=== PATIENT | male | born 1985 | race Caucasian/White ===

== ENCOUNTER 2020-12-26 19:23 | Emergency (ER) | payer MEDICAID ==
[~2020-12-26] VITALS: Ht 180.3 cm; Wt 87.5 kg
--- NOTE | 2020-12-26 19:27 | NUR ---
PT BIBSELF C/O SI, WANTING TO "CUT WRIST" AND SEEKING VOL PSYCH ADMISSION.PT AAOX4 BREATHING EVENLY AND UNLABORED. PT PLACED IN GOWN, BELONGINGS LOCKED IN LOCKER. PT ATTACHED TO MONITOR AND POX WITH SITTER. WILL CONTINUE TO MONITOR.
[2020-12-26 19:51] LABS: BASOPHILS # (AUTO) 0.1 K/uL (0.0-0.2); BASOPHILS % (AUTO) 1.1 % (0.0-2.0); EOSINOPHILS % (AUTO) 3.9 % (0.0-6.0); HEMATOCRIT 45 % (39-51); HEMOGLOBIN 15.4 g/dL (13.5-17.5); LYMPHOCYTES # (AUTO) 2.1 K/uL (0.8-4.8); LYMPHOCYTES % (AUTO) 27.5 % (20.0-44.0); MEAN CORPUSCULAR HGB CONC 34 g/dl (31.0-36.0); MEAN CORPUSCULAR VOLUME 85 fL (80-96); MONOCYTES # (AUTO) 0.7 K/uL (0.1-1.30); MONOCYTES % (AUTO) 8.7 % (2.0-12.0); NEUTROPHILS # (AUTO) 4.4 K/uL (1.8-8.9); NEUTROPHILS % (AUTO) 58.8 % (43.0-81.0); PLATELET COUNT (AUTO) 198 K/uL (150-450); RED BLOOD CELL COUNT(AUTO) 5.36 MIL/uL (4.5-6.0); WHITE BLOOD COUNT (AUTO) 7.5 K/uL (4.3-11.0)
[2020-12-26 19:58] LABS: BILIRUBIN,URINE Negative (NEGATIVE); LEUKOCYTE ESTERASE ,URINE Negative (NEGATIVE); NITRITE, URINE Negative (NEGATIVE); PH,URINE 5.5 (5.0-8.0); PROTEIN,URINE Negative (NEGATIVE); UGLUCOSE Negative (NEGATIVE); UROBILINOGEN,URINE 0.2 EU/dL (0.2)
[2020-12-26 20:04] LABS: COLOR,URINE DARK YELLOW (YELLOW)
[2020-12-26 20:04] LABS: ALANINE AMINOTRANSFERASE 266 U/L (12-78); ALKALINE PHOSPHATASE 132 U/L (46-116); ASPARTATE AMINOTRANSFERASE 98 U/L (15-37); BILIRUBIN,DIRECT 0.1 mg/dL (0.0-0.2); BILIRUBIN,TOTAL 0.6 mg/dL (0.2-1.0); CALCIUM, SERUM 8.9 mg/dL (8.5-10.1); CARBON DIOXIDE 25 mmol/L (21-32); CHLORIDE 103 mmol/L (98-107); CREATININE 1.1 mg/dL (0.6-1.3); GLUCOSE 99 mg/dL (74-106); POTASSIUM 4.1 mmol/L (3.5-5.1); SODIUM SERUM 138 mmol/L (136-145); UREA NITROGEN, BLOOD 16 mg/dL (7-18)
[2020-12-26 20:09] LABS: ACETAMINOPHEN < 2 ug/ml (10-30); ALCOHOL, BLOOD < 3 mg/dL (0-0)
--- NOTE | 2020-12-26 21:27 | NUR ---
FACE SHEET AND CLINICALS WERE FAXED TO [facility]
--- NOTE | 2020-12-26 23:25 | NUR ---
CALLED ART AT [facility]TA[facility] FOR UPDATE. HE'LL CALL ME BACK WITH UPDATE
--- NOTE | 2020-12-27 00:22 | NUR ---
PT RESTING COMFORTABLY WITH EYES CLOSED. EASILY AROUSABLE
[2020-12-27 01:30] VITALS: BP 110/74
--- NOTE | 2020-12-27 02:12 | NUR ---
per [facility] , [facility] by Dr. Vides. # for report: [phone]
--- NOTE | 2020-12-27 02:15 | NUR ---
[facility] TRANSPORTATION ARRANGED FOR 90 MIN
--- NOTE | 2020-12-27 03:04 | NUR ---
gave report to kevin mcgill for [facility]
--- NOTE | 2020-12-27 03:04 | NUR ---
gave report to ems for [facility]
== END 2020-12-27 03:17 ==
LOC: ER 19:29
DX: R45.851 Suicidal ideations (principal); F31.9 Bipolar disorder, unspecified; R74.01 Elevation of levels of liver transaminase levels; Z20.822 Contact with and (suspected) exposure to COVID-19
CPT/HCPCS: 36415; 80048; 80076; 80143; 80307; 80320; 81003; 83690; 85025; 87426; 99285; C9803; G0480

== ENCOUNTER 2021-01-01 22:50 | Emergency (ER) | payer MEDICAID ==
[~2021-01-01] VITALS: Ht 180.3 cm; Wt 87.1 kg
[2021-01-02 00:12] LABS: BASOPHILS # (AUTO) 0.1 K/uL (0.0-0.2); BASOPHILS % (AUTO) 0.9 % (0.0-2.0); EOSINOPHILS % (AUTO) 3.3 % (0.0-6.0); HEMATOCRIT 43 % (39-51); HEMOGLOBIN 14.2 g/dL (13.5-17.5); LYMPHOCYTES # (AUTO) 2.2 K/uL (0.8-4.8); LYMPHOCYTES % (AUTO) 27.6 % (20.0-44.0); MEAN CORPUSCULAR HGB CONC 33 g/dl (31.0-36.0); MEAN CORPUSCULAR VOLUME 85 fL (80-96); MONOCYTES # (AUTO) 0.7 K/uL (0.1-1.30); MONOCYTES % (AUTO) 8.3 % (2.0-12.0); NEUTROPHILS # (AUTO) 4.9 K/uL (1.8-8.9); NEUTROPHILS % (AUTO) 59.9 % (43.0-81.0); PLATELET COUNT (AUTO) 186 K/uL (150-450); WHITE BLOOD COUNT (AUTO) 8.1 K/uL (4.3-11.0)
[2021-01-02 00:21] LABS: CALCIUM, SERUM 8.4 mg/dL (8.5-10.1); CARBON DIOXIDE 28 mmol/L (21-32); CHLORIDE 103 mmol/L (98-107); CREATININE 1.1 mg/dL (0.6-1.3); GLUCOSE 121 mg/dL (74-106); POTASSIUM 3.9 mmol/L (3.5-5.1); SODIUM SERUM 137 mmol/L (136-145); UREA NITROGEN, BLOOD 18 mg/dL (7-18)
[2021-01-02 00:28] LABS: ALANINE AMINOTRANSFERASE 105 U/L (12-78); ALBUMIN 3.6 g/dL (3.4-5.0); ALKALINE PHOSPHATASE 110 U/L (46-116); ASPARTATE AMINOTRANSFERASE 19 U/L (15-37); BILIRUBIN,DIRECT 0.1 mg/dL (0.0-0.2); BILIRUBIN,TOTAL 0.4 mg/dL (0.2-1.0); TOTAL PROTEIN, SERUM 7.1 g/dL (6.4-8.2)
[2021-01-02 00:29] LABS: ACETAMINOPHEN 0 ug/ml (10-30); ALCOHOL, BLOOD < 3 mg/dL (0-0)
[2021-01-02 00:41] LABS: BILIRUBIN,URINE Negative (NEGATIVE); COLOR,URINE YELLOW (YELLOW); LEUKOCYTE ESTERASE ,URINE Negative (NEGATIVE); NITRITE, URINE Negative (NEGATIVE); PH,URINE 5.5 (5.0-8.0); PROTEIN,URINE Negative (NEGATIVE); UGLUCOSE Negative (NEGATIVE); UROBILINOGEN,URINE 0.2 EU/dL (0.2)
--- NOTE | 2021-01-02 01:35 | NUR ---
FACESHEET AND CLINICALS FA[facility]ED TO [facility].
--- NOTE | 2021-01-02 02:16 | NUR ---
PATIENT IS SLEEPING. EASILTARUSABLE THROUGH VERBAL STIMULI. CONNECTED TO THE MONITOR. SITTER AT THE BEDSIDE. SIDE RAILS ARE UP FOR SAFETY. SITTER IS AT BEDSIDE.
--- NOTE | 2021-01-02 07:53 | NUR ---
PATIENT AWAKE, STILL C/O HEARING VOICES, PENDING ACCEPTANCE FROM A [facility]ATRIC HOS[facility] FOR VOLUNTARY ADMISSION.
--- NOTE | 2021-01-02 08:05 | NUR ---
BREAKFAST TRAY PROVIDED
--- NOTE | 2021-01-02 10:00 | NUR ---
PT STATED HE IS NOT SUICIDAL AND WANTS TO BE DISCHARGED. MD AWARE.
--- NOTE | 2021-01-02 10:06 | NUR ---
Patient given written and verbal discharge instructions. Patient verbalizes understanding of instructions. Patient is ambulatory with steady gait. Refuses offer of correction placement. Patient given list of available shelters in surrounding area.
[2021-01-02 10:08] VITALS: BP 127/72
== END 2021-01-02 10:08 | disposition home or self-care (01) ==
LOC: ER 22:53
DX: R45.851 Suicidal ideations (principal); Z20.822 Contact with and (suspected) exposure to COVID-19; F31.9 Bipolar disorder, unspecified
CPT/HCPCS: 36415; 80048; 80076; 80143; 80307; 80320; 81003; 85025; 87426; 99285; A6403; C9803; G0480

== ENCOUNTER 2021-01-03 00:10 | Emergency (ER) | payer MEDICAID, OTHER ==
[~2021-01-03] VITALS: Ht 177.8 cm; Wt 85.3 kg
--- NOTE | 2021-01-03 01:36 | NUR ---
BIBSEHILARY C/O SI WITH PLAN TO CUT WRIST. REQUESTING [facility]OL[facility] ADMISSION TO [facility]. OSWALDO RODNEY AT BEDSIDE FOR EVAL. AWAITING ORDERS.
[2021-01-03 01:39] LABS: BASOPHILS # (AUTO) 0.1 K/uL (0.0-0.2); BASOPHILS % (AUTO) 0.9 % (0.0-2.0); EOSINOPHILS % (AUTO) 4.3 % (0.0-6.0); HEMATOCRIT 45 % (39-51); HEMOGLOBIN 14.9 g/dL (13.5-17.5); LYMPHOCYTES # (AUTO) 2.6 K/uL (0.8-4.8); LYMPHOCYTES % (AUTO) 34.8 % (20.0-44.0); MEAN CORPUSCULAR HGB CONC 33 g/dl (31.0-36.0); MEAN CORPUSCULAR VOLUME 86 fL (80-96); MONOCYTES # (AUTO) 0.6 K/uL (0.1-1.30); MONOCYTES % (AUTO) 8.4 % (2.0-12.0); NEUTROPHILS # (AUTO) 3.8 K/uL (1.8-8.9); NEUTROPHILS % (AUTO) 51.6 % (43.0-81.0); PLATELET COUNT (AUTO) 201 K/uL (150-450); RED BLOOD CELL COUNT(AUTO) 5.23 MIL/uL (4.5-6.0); WHITE BLOOD COUNT (AUTO) 7.5 K/uL (4.3-11.0)
[2021-01-03 01:39] LABS: BILIRUBIN,URINE Negative (NEGATIVE); COLOR,URINE YELLOW (YELLOW); LEUKOCYTE ESTERASE ,URINE Negative (NEGATIVE); NITRITE, URINE Negative (NEGATIVE); PH,URINE 5.5 (5.0-8.0); PROTEIN,URINE Negative (NEGATIVE); UGLUCOSE Negative (NEGATIVE); UROBILINOGEN,URINE 0.2 EU/dL (0.2)
[2021-01-03 01:47] LABS: CALCIUM, SERUM 8.8 mg/dL (8.5-10.1); CARBON DIOXIDE 26 mmol/L (21-32); CHLORIDE 102 mmol/L (98-107); GLUCOSE 99 mg/dL (74-106); POTASSIUM 4.1 mmol/L (3.5-5.1); SODIUM SERUM 135 mmol/L (136-145); UREA NITROGEN, BLOOD 15 mg/dL (7-18)
[2021-01-03 02:02] LABS: ALANINE AMINOTRANSFERASE 94 U/L (12-78); ALKALINE PHOSPHATASE 114 U/L (46-116); ASPARTATE AMINOTRANSFERASE 22 U/L (15-37); BILIRUBIN,DIRECT 0.1 mg/dL (0.0-0.2); BILIRUBIN,TOTAL 0.6 mg/dL (0.2-1.0); TOTAL PROTEIN, SERUM 7.8 g/dL (6.4-8.2)
[2021-01-03 02:07] LABS: ACETAMINOPHEN < 0 ug/ml (10-30); ALCOHOL, BLOOD < 0 mg/dL (0-0)
--- NOTE | 2021-01-03 03:51 | NUR ---
FACESHEET AND CLINICALS FA[facility]ED TO [facility].
--- NOTE | 2021-01-03 07:22 | NUR ---
FOLLOWED UP WITH [facility] RE: ACCEPTANCE, CLINICALS STILL BEING REVIEWED.
--- NOTE | 2021-01-03 07:30 | NUR ---
The patient does not want to have vital signs to be checked at this time.
--- NOTE | 2021-01-03 08:13 | NUR ---
The patient sleeping in bed. Responsive to verbal stimuli. Will continue to monitor the patient.
--- NOTE | 2021-01-03 08:49 | NUR ---
The patient is awake, alert and oriented x4. Denies pain. In room air and denies SOB. Respiration regular and unlabored.
--- NOTE | 2021-01-03 08:50 | NUR ---
The patient is having breakfast at this time.
--- NOTE | 2021-01-03 09:16 | NUR ---
PT ACCEPTED TO [facility] UNDER DR. GUY & KEN CALL [phone] FOR REPORT.
--- NOTE | 2021-01-03 09:31 | NUR ---
TRANSPORT CALLED [facility] HAVE AN ETA OF 60 MINS. PER KEATON
--- NOTE | 2021-01-03 09:57 | NUR ---
PATIENT REFUSES TO GO TO [facility], INFORMED DR. TONEY AND RYDER CELLULAR EQUIPMENT REPAIRER.
--- NOTE | 2021-01-03 10:00 | NUR ---
PT SEEN AND CONSULTED BY INTELLIGENCE OFFICER BASIC RYDER. PATIENT DENIES SI/HI AT THIS TIME. HOMELESS RESOURCES PROVIDED.
--- NOTE | 2021-01-03 10:10 | NUR ---
"Drywall Stripper Helper consult: tax services specialist consult requested for suicidal ideation with a plan and homelessness. Patient is a 35-year-old, male. SW met with the patient at his bedside in the emergency department. Patient was alert and oriented x4. Patient presented anxious and appeared well-groomed. Patient asked if he was discharged. Per chart, patient was brought in by self on 01/03/21 with complaints of suicidal ideation with a plan to cut his wrists. Per ED public health staff nurse, patient requested voluntary inpatient psychiatric hospitalization. Patient has been accepted to [facility] ([address] [place] [id number]; ). Patient stated that he is currently staying with friends at this time due to homelessness for the last six months. SW asked the patient if he currently has a source of income and patient stated that he has no income at this time but has support from his friends. SW asked the patient if he has a history of substance use and patient reported no recent substance use but stated that he used to drink alcohol a few times a week. Patient denied history of mental illness. SW asked the patient if he is currently experiencing suicidal or homicidal ideation and patient denied suicidal ideation. Patient denied homicidal ideation. Patient refused to go to [facility] for inpatient psychiatric hospitalization and stated, I dont want to go anymore, Im okay now. Patient stated that he was experiencing suicidal ideation earlier today. SW discussed a safety plan with the patient and asked him if he knew where to go if he was experiencing suicidal ideation and patient stated, yes Ill come to a hospital. EMELINA provided patient with information for [facility] [address] [place] [address]; ). SW asked the patient if had access to social support and patient stated that his friends provide him with support. EMELINA offered the patient homeless and outpatient mental health resources. Patient accepted the resources and thanked EMELINA. Patient signed the homeless waiver and EMELINA filed the waiver in the patients chart. EMELINA discussed discharge plans with the patient and patient stated that he will return to his prior living arrangement with friends and will use public transportation. PLAN: Patient stated that he will return to his prior living arrangement at the time of discharge. No further SS intervention at this time, however, SW will remain available as needed. RESOURCES: Year-round shelters: [place] [address] [place] [address] ; [facility] [place] [address] [place] [address]; [facility] [id number] [facility] [address] [address] 4 | [facility] Recreation [place] Provider: First to Serve Address: [address], [address] # of Beds: 48 Population Served: [facility] Provider: First to Serve Address: [address] [facility], [address] # of Beds: 73 Population Served: [facility] 6 | [facility] Provider: [facility] at Last Address: [address] [facility], [address] # of Beds: 63 Population Served: [facility] 3 | [facility] Provider: [facility] [place] Address: [address] [place], [place] [id number] # of Beds: 75 Population Served: [facility] 8 | [facility] Provider: [facility] [place] Address: [address] [facility] [address] # of Beds: 80 Population Served: [facility] 1 | [facility] Provider: [facility] [place] Address: [address] [address], [address] # of Beds: 85 Population Served: [facility] 2 | [facility] Provider: Radha snowden [facility] Address: Confidential (please call for location) # of Beds: 52 Population Served: [facility] 4 | [facility] Provider: Lia [facility] Address: [address] [facility], [address] # of Beds: 49 Population Served: [facility] Provider: First To Serve Address: [address] [facility], [address] # of Beds: 27 Population Served: [employer]: [facility]: [address] [place] ; [facility] [address] [facility] ; [facility] [address] [place] . Food Resources: [place] [facility]- [address] [place]; Meet Each Need with [facility] ([facility]) [address] [facility]; [facility] [address] [facility]; [facility] [address] [facility]. Mental Health resources provided: [facility] [address] [place], [place] [id number] ; [facility] Mental Health [employer] [address] [facility] [address], [place], [place] [id number] ; [facility] [address] [facility] [place] [address] ; [facility] [address] [place], [place] [phone] Healthcare Clinics: [facility] [address] [facility], [address] [place]. [place] ; [facility] [address] [facility] [address] [place] [address]; [facility] [[email or web address]] [address] [facility]. [place] [phone] Counseling--Outpatient [facility] [address] [facility], [place] [address] (Specializes in in-depth psychotherapy for emotional distress: anxiety, depression, interpersonal conflicts, life transitions, childhood abuse) PSYCHIATRIC OUTPATIENT SERVICES [facility] Partial Hospitalization and Intensive Outpatient Program (Managed Care and [place] Only) [address] [facility]. [facility] [id number] [facility] Partial Hospitalization and Outpatient Program [address] [place] [address] [facility] Partial Hospitalization and Outpatient Program [address] [place], [place] [id number] MINERVA JUAREZ [facility] [address] [place] [address] [facility] Partial Hospitalization and Outpatient Program [address] [place], [place] [phone] "
[2021-01-03 10:26] VITALS: BP 108/71
--- NOTE | 2021-01-03 10:26 | NUR ---
Patient given written and verbal discharge instructions. Patient verbalizes understanding of instructions. Patient is ambulatory with steady gait. Refuses offer of [facility]p placement. Patient given list of available shelters in surrounding area.
== END 2021-01-03 10:26 | disposition home or self-care (01) ==
LOC: ER 00:10
DX: R45.851 Suicidal ideations (principal); F31.9 Bipolar disorder, unspecified; F17.200 Nicotine dependence, unspecified, uncomplicated; Z20.822 Contact with and (suspected) exposure to COVID-19
CPT/HCPCS: 36415; 80048; 80076; 80143; 80307; 80320; 81003; 85025; 87426; 99285; C9803; G0480

== ENCOUNTER 2021-01-14 20:12 | Emergency (ER) | payer OTHER ==
[~2021-01-14] VITALS: Ht 180.3 cm; Wt 87.5 kg
--- NOTE | 2021-01-14 20:15 | NUR ---
BIB SELF C/O SI WITH PLAN TO CUT WRIST. DENIES HI. REQUESTING VOLUNTARY ADMISSION TO [facility]. PT AAOX4 NO ACUTE DISTRESS NOTED, RESP EVEN AND UNLABORED. PT CALM AND COOPERATIVE AT THIS TIME.
--- NOTE | 2021-01-14 20:28 | NUR ---
BLOOD DRAWN BY HEAD PACKAGER.
[2021-01-14 20:33] LABS: BASOPHILS # (AUTO) 0.1 K/uL (0.0-0.2); BASOPHILS % (AUTO) 0.8 % (0.0-2.0); EOSINOPHILS % (AUTO) 3.2 % (0.0-6.0); HEMATOCRIT 44 % (39-51); HEMOGLOBIN 14.9 g/dL (13.5-17.5); LYMPHOCYTES # (AUTO) 1.9 K/uL (0.8-4.8); LYMPHOCYTES % (AUTO) 27.1 % (20.0-44.0); MEAN CORPUSCULAR HGB CONC 34 g/dl (31.0-36.0); MEAN CORPUSCULAR VOLUME 85 fL (80-96); MONOCYTES # (AUTO) 0.6 K/uL (0.1-1.30); MONOCYTES % (AUTO) 8.3 % (2.0-12.0); NEUTROPHILS # (AUTO) 4.3 K/uL (1.8-8.9); NEUTROPHILS % (AUTO) 60.6 % (43.0-81.0); PLATELET COUNT (AUTO) 208 K/uL (150-450); RED BLOOD CELL COUNT(AUTO) 5.16 MIL/uL (4.5-6.0); WHITE BLOOD COUNT (AUTO) 7.1 K/uL (4.3-11.0)
[2021-01-14 20:43] LABS: BILIRUBIN,URINE Negative (NEGATIVE); COLOR,URINE DARK YELLOW (YELLOW); LEUKOCYTE ESTERASE ,URINE Negative (NEGATIVE); NITRITE, URINE Negative (NEGATIVE); PH,URINE 5.5 (5.0-8.0); PROTEIN,URINE Negative (NEGATIVE); UGLUCOSE Negative (NEGATIVE); UROBILINOGEN,URINE 0.2 EU/dL (0.2)
[2021-01-14 20:48] LABS: CALCIUM, SERUM 8.5 mg/dL (8.5-10.1); CARBON DIOXIDE 27 mmol/L (21-32); CHLORIDE 103 mmol/L (98-107); CREATININE 1.1 mg/dL (0.6-1.3); GLUCOSE 140 mg/dL (74-106); POTASSIUM 3.8 mmol/L (3.5-5.1); SODIUM SERUM 139 mmol/L (136-145); UREA NITROGEN, BLOOD 16 mg/dL (7-18)
[2021-01-14 20:53] LABS: ALANINE AMINOTRANSFERASE 94 U/L (12-78); ALBUMIN 3.8 g/dL (3.4-5.0); ALCOHOL, BLOOD < 3 mg/dL (0-0); ALKALINE PHOSPHATASE 114 U/L (46-116); ASPARTATE AMINOTRANSFERASE 36 U/L (15-37); BILIRUBIN,DIRECT 0.1 mg/dL (0.0-0.2); BILIRUBIN,TOTAL 0.6 mg/dL (0.2-1.0); TOTAL PROTEIN, SERUM 7.6 g/dL (6.4-8.2)
[2021-01-14 20:55] LABS: ACETAMINOPHEN < 2 ug/ml (10-30)
--- NOTE | 2021-01-14 21:15 | NUR ---
FACESHEET AND CLINICAL FAXED TO [facility] FOR VOLUNTARY PSYCH ADMISSION.
--- NOTE | 2021-01-14 22:58 | NUR ---
PT GOT ACCEPTED AT [facility] BY DR BANG
--- NOTE | 2021-01-14 23:08 | NUR ---
TRANSPORT CALLED ([facility]) ETA 45MIN.
--- NOTE | 2021-01-14 23:29 | NUR ---
REPORT GIVEN TO JAN AT [facility]. PT IS GOING TO [facility]
[2021-01-14 23:32] VITALS: BP 132/75
--- NOTE | 2021-01-14 23:32 | NUR ---
AYANNA AT [facility] REPORT GIADAMN TO EMT.
== END 2021-01-14 23:42 ==
LOC: ER 20:12
DX: R45.851 Suicidal ideations (principal); Z82.49 Family history of ischemic heart disease and other diseases of the circulatory system; F15.10 Other stimulant abuse, uncomplicated; R03.0 Elevated blood-pressure reading, without diagnosis of hypertension; F20.9 Schizophrenia, unspecified; F31.9 Bipolar disorder, unspecified; Z59.0 Homelessness; Z20.822 Contact with and (suspected) exposure to COVID-19
CPT/HCPCS: 36415; 80048; 80076; 80143; 80307; 80320; 81003; 85025; 87426; 99285; C9803; G0480

== ENCOUNTER 2021-03-04 17:47 | Emergency (ER) | payer OTHER ==
[~2021-03-04] VITALS: Ht 180.3 cm; Wt 87.5 kg
--- NOTE | 2021-03-04 18:02 | NUR ---
The patient bibs for having SI "i want to cut my wrist", want's voluntary admission to [facility]. Denies pain. In room air and denies SOB. Respiration regular and unlabored. Safety meausres taken. Will continue to monitor the patient.
[2021-03-04 18:33] LABS: BASOPHILS # (AUTO) 0.1 K/uL (0.0-0.2); BASOPHILS % (AUTO) 0.8 % (0.0-2.0); EOSINOPHILS % (AUTO) 1.5 % (0.0-6.0); HEMATOCRIT 48 % (39-51); HEMOGLOBIN 15.8 g/dL (13.5-17.5); LYMPHOCYTES # (AUTO) 2.2 K/uL (0.8-4.8); LYMPHOCYTES % (AUTO) 26.3 % (20.0-44.0); MEAN CORPUSCULAR HGB CONC 33 g/dl (31.0-36.0); MEAN CORPUSCULAR VOLUME 84 fL (80-96); MONOCYTES # (AUTO) 0.5 K/uL (0.1-1.30); MONOCYTES % (AUTO) 6.2 % (2.0-12.0); NEUTROPHILS # (AUTO) 5.5 K/uL (1.8-8.9); NEUTROPHILS % (AUTO) 65.2 % (43.0-81.0); PLATELET COUNT (AUTO) 227 K/uL (150-450); RED BLOOD CELL COUNT(AUTO) 5.67 MIL/uL (4.5-6.0); WHITE BLOOD COUNT (AUTO) 8.4 K/uL (4.3-11.0)
[2021-03-04 18:36] LABS: ALANINE AMINOTRANSFERASE 39 U/L (12-78); ALBUMIN 4.4 g/dL (3.4-5.0); ALKALINE PHOSPHATASE 108 U/L (46-116); ASPARTATE AMINOTRANSFERASE 19 U/L (15-37); BILIRUBIN,DIRECT 0.2 mg/dL (0.0-0.2); BILIRUBIN,TOTAL 0.8 mg/dL (0.2-1.0); CALCIUM, SERUM 9.1 mg/dL (8.5-10.1); CARBON DIOXIDE 23 mmol/L (21-32); CHLORIDE 102 mmol/L (98-107); CREATININE 1.1 mg/dL (0.6-1.3); GLUCOSE 113 mg/dL (74-106); POTASSIUM 3.9 mmol/L (3.5-5.1); SODIUM SERUM 138 mmol/L (136-145); TOTAL PROTEIN, SERUM 8.3 g/dL (6.4-8.2); UREA NITROGEN, BLOOD 12 mg/dL (7-18)
[2021-03-04 18:39] LABS: ACETAMINOPHEN < 2 ug/ml (10-30); ALCOHOL, BLOOD < 3 mg/dL (0-0)
--- NOTE | 2021-03-04 18:56 | NUR ---
COVID SWAB DONE AND SENT TO THE LAB
--- NOTE | 2021-03-04 19:19 | NUR ---
urine sent to lab
[2021-03-04 21:54] LABS: BILIRUBIN,URINE NEGATIVE (NEGATIVE); COLOR,URINE YELLOW (YELLOW); LEUKOCYTE ESTERASE ,URINE NEGATIVE (NEGATIVE); NITRITE, URINE NEGATIVE (NEGATIVE); PROTEIN,URINE NEGATIVE (NEGATIVE); UGLUCOSE NEGATIVE (NEGATIVE); UROBILINOGEN,URINE 0.2 EU/dL (0.2)
--- NOTE | 2021-03-05 02:41 | NUR ---
sent clinicals to [facility] intake
--- NOTE | 2021-03-05 04:16 | NUR ---
[facility] Nunes. Pt going to unit 2 number for report [phone]
--- NOTE | 2021-03-05 04:19 | NUR ---
[facility] pickup eta 45-60min
--- NOTE | 2021-03-05 04:22 | NUR ---
REPROT GIVEN TO CHRISTOPHER AT [facility].
[2021-03-05 04:32] VITALS: BP 118/77
--- NOTE | 2021-03-05 04:37 | NUR ---
report given to ems
== END 2021-03-05 04:37 ==
LOC: ER 17:49
DX: R45.851 Suicidal ideations (principal); F31.9 Bipolar disorder, unspecified; Z20.822 Contact with and (suspected) exposure to COVID-19
CPT/HCPCS: 36415; 80048; 80076; 80143; 80307; 80320; 81003; 85025; 87426; 99285; C9803; G0480

== ENCOUNTER 2021-08-09 00:54 | Emergency (ER) | payer OTHER ==
[~2021-08-09] VITALS: Ht 180.3 cm; Wt 74.8 kg
--- NOTE | 2021-08-09 03:19 | NUR ---
BIBS C/O S/I WITH PLAN TO OD ON PILLS. SEEKING VOLUNTARY ADMISSION TO [facility]. PATIENT ALERT AND ORIENTED X3. AMBULATRY WITH NON LABORED BREATHING.
[2021-08-09 04:09] LABS: CALCIUM, SERUM 9.6 mg/dL (8.5-10.1); CARBON DIOXIDE 31 mmol/L (21-32); CHLORIDE 103 mmol/L (98-107); CREATININE 1.1 mg/dL (0.6-1.3); GLUCOSE 81 mg/dL (74-106); SODIUM SERUM 140 mmol/L (136-145); UREA NITROGEN, BLOOD 14 mg/dL (7-18)
[2021-08-09 04:13] LABS: BASOPHILS # (AUTO) 0.1 K/uL (0.0-0.2); EOSINOPHILS % (AUTO) 4.1 % (0.0-6.0); HEMATOCRIT 47 % (39-51); HEMOGLOBIN 15.8 g/dL (13.5-17.5); LYMPHOCYTES # (AUTO) 3.2 K/uL (0.8-4.8); LYMPHOCYTES % (AUTO) 36.3 % (20.0-44.0); MEAN CORPUSCULAR HGB CONC 34 g/dl (31.0-36.0); MEAN CORPUSCULAR VOLUME 83 fL (80-96); MONOCYTES # (AUTO) 0.8 K/uL (0.1-1.30); MONOCYTES % (AUTO) 9.5 % (2.0-12.0); NEUTROPHILS # (AUTO) 4.3 K/uL (1.8-8.9); NEUTROPHILS % (AUTO) 49.1 % (43.0-81.0); PLATELET COUNT (AUTO) 214 K/uL (150-450); RED BLOOD CELL COUNT(AUTO) 5.63 MIL/uL (4.5-6.0); WHITE BLOOD COUNT (AUTO) 8.8 K/uL (4.3-11.0)
[2021-08-09 04:14] LABS: ALANINE AMINOTRANSFERASE 76 U/L (12-78); ALBUMIN 4.4 g/dL (3.4-5.0); ALCOHOL, BLOOD < 3 mg/dL (0-0); ALKALINE PHOSPHATASE 138 U/L (46-116); ASPARTATE AMINOTRANSFERASE 29 U/L (15-37); BILIRUBIN,DIRECT 0.1 mg/dL (0.0-0.2); BILIRUBIN,TOTAL 0.5 mg/dL (0.2-1.0); TOTAL PROTEIN, SERUM 8.9 g/dL (6.4-8.2)
[2021-08-09 04:18] LABS: ACETAMINOPHEN 0 ug/ml (10-30)
[2021-08-09 05:19] LABS: BILIRUBIN,URINE NEGATIVE (NEGATIVE); COLOR,URINE YELLOW (YELLOW); LEUKOCYTE ESTERASE ,URINE NEGATIVE (NEGATIVE); NITRITE, URINE NEGATIVE (NEGATIVE); PROTEIN,URINE NEGATIVE (NEGATIVE); UGLUCOSE NEGATIVE (NEGATIVE); UROBILINOGEN,URINE 0.2 EU/dL (0.2)
--- NOTE | 2021-08-09 06:22 | NUR ---
PER [facility], NO BEDS AT THIS TIME, FAX CLINICALS AFTER 8AM
[2021-08-09 07:30] VITALS: BP 132/60
--- NOTE | 2021-08-09 11:24 | NUR ---
called [facility]. will be accepted after [address] [facility]ang[facility]
--- NOTE | 2021-08-09 11:56 | NUR ---
LUNCH TRAY PROVIDED.
--- NOTE | 2021-08-09 13:19 | NUR ---
TRANSPORTED VIA [employer] SHUTTLE. REPORT GIVEN. STABLE VITALS.
== END 2021-08-09 13:21 ==
LOC: ER 00:54
DX: R45.851 Suicidal ideations (principal); F31.9 Bipolar disorder, unspecified; Z20.822 Contact with and (suspected) exposure to COVID-19; Z59.01 Sheltered homelessness
CPT/HCPCS: 36415; 80048; 80076; 80143; 80307; 80320; 81003; 85025; 87426; 99285; C9803; G0480